=== PATIENT | female | born 1940 | race Caucasian/White ===

== ENCOUNTER 2017-06-22 13:08 | Inpatient (IN) | payer MEDICARE, MEDICAID ==
--- NOTE | 2017-06-22 13:29 | ED Physician Chart ---
ED Chief Complaint/HPI - Patient Information Date Seen:: 06/22/17 Time Seen:: 13:15 Chief Complaint:: Syncope History of Present Illness:: onset x one day of syncope, weakness, and dizainess; no report of trauma, LOC, H /As, ALOC, AMS, neck pain, C/P, SOB, Abd. Pain, A/N/V/D/C, fever, chills, or urinary s/s Allergies:: Allergies Allergy/AdvReac Type Severity Reaction Status Date / Time No Known Allergies Allergy Verified 06/22/17 13:24 Historian:: Patient Review:: Nurse's Note Reviewed ED Review of Systems - Review of Systems General/Constitutional: No fever, No chills, No weight loss, No weakness, No diaphoresis, No edema, No loss of appetite Skin: No skin lesions, No rash, No bruising Head: No headache, No light-headedness Eyes: No loss of vision, No pain, No diplopia ENT: No earache, No nasal drainage, No sore throat, No tinnitus Neck: No neck pain, No swelling, No thyromegaly, No stiffness, No mass noted Cardio Vascular: No chest pain, No palpitations, No PND, No orthopnea, No edema Pulmonary: No SOB, No cough, No sputum, No wheezing GI: No nausea, No vomiting, No diarrhea, No pain, No melena, No hematochezia, No constipation, No hematemesis G/U: No dysuria, No frequency, No hematuria, No nacturia Conference Concierge: No vaginal discharge, No abnormal vaginal bleed, No contraction Musculoskeletal: No bone or joint pain, No back pain, No muscle pain Endocrine: No polyuria, No polydipsia Psychiatric: Prior psych history, No depression, Anxiety, No suicidal ideation, No homicidal ideation, No auditory hallucination, No visual hallucination Hematopoietic: No bruising, No lymphadenopathy Allergic/Immuno: No urticaria, No angioedema Neurological: Syncope, No focal symptoms, No weakness, No paresthesia, No headache, No seizure, Dizziness, Confusion, Vertigo ED Past Medical History - Past Medical History Obtainable: Yes Past Medical History: HTN, Asthma/COPD, Arthritis, Dementia Family History: HTN Social History: Non Smoker, No Alcohol, No Drug Use, Surgical History: None Psychiatricy History: Dementia Medication: Reviewed ED Physical Exam - Physical Examination General/Constitutional: Awake, Well-developed, well-nourished, Alert, No distress, GCS 15, Non-toxic appearing, Ambulatory Head: Atraumatic Eyes: Lids, conjuctiva normal, PERRL, EOMI Skin: Nl inspection, No rash, No skin lesions, No ecchymosis, Well hydrated, No lymphadenopathy ENMT: External ears, nose nl, TM canals nl, Nasal exam nl, Lips, teeth, gums nl , Oropharynx nl, Tonsils nl Neck: Nontender, Full ROM w/o pain, No JVD, No nuchal rigidity, No bruit, No mass, No stridor Respiratory: Nl effort/Exclusion, Clear to Auscultation, No Wheeze/Rhonchi/Rales Cardio Vascular: RRR, No murmur, gallop, rubs, NL S1 S2, Carotid/Femoral/Distal pulses equal bilaterally GI: No tenderness/rebounding/guarding, No organomegaly, No hernia, Normal BS's, Nondistended, No mass/bruits, No McBurney tenderness : No CVA tenderness Extremities: No tenderness or effusion, Full ROM, normal strength in all extremities, No edema, Normal digits & nails Neuro/Psych: Alert/oriented, DTR's symmetric, Normal sensory exam, Normal motor strength, Judgement/insight normal, Mood normal, Normal gait, No focal deficits Misc: Normal back, No paraspinal tenderness ED Labs/Radiology/EKG Results - Lab Results Comments:: Na+: 130 - Radiology Results Comments:: NAD - EKG Interpretations EKG Time:: 13:31 Rate & Rhythm: 79; nsr Comments:: non-specific st-t changes ED Septic Shock - . Is Septic Shock (SBP<90, OR Lactate>4 mmol\L) present?: No ED Reassessment (Disposition) - Reassessment Reassessment Condition:: Improved - Diagnosis Diagnosis:: Dx: Hyponatremia; Syncope; TIA; Cardiac Arrythmias; Dizziness; Vertigo - Aftercare/Follow up Instructions Aftercare/Follow-Up Instructions:: Counseled pt regarding lab results/diagnosis & need follow up, Counseled pt & family regarding lab results/diagnosis & need follow up - Patient Disposition Discharge/Transfer:: Acute Care w/in this hosp Accepting Physician:: Dr. Zacarias Time Called:: 1500 Time Responded:: 15:00 Admitted to:: Telemetry Spoke to:: Dr. Adames Admitting Medical Physician:: Dr. Adames Condition at Disposition:: Stable, Improved
[2017-06-22 13:57] LABS: % BASOPHILS 0.4 % (0.0-2.0); % EOSINOPHILS 1.7 % (0.0-5.0); % MONOCYTES 6.9 % (2.0-10.0); EOSINOPHILE ABSOLUTE 0.1 Th/cmm (0.1-0.4); HEMATOCRIT 35.9 % (41.0-60); LYMPHOCYTE ABSOLUTE 1.9 Th/cmm (1.5-3.0); MEAN CELL VOLUME 85.5 fl (81-100); MEAN CORPUSCULAR HEMOGLOBIN 28.7 pg (27.0-31.0); MEAN CORPUSCULAR HGB CONC 33.6 pg (28.0-36.0); MEAN PLATELET VOLUME 6.9 fl; MONOCYTE ABSOLUTE 0.5 Th/cmm (0.3-1.0); NEUTROPHILE ABSOLUTE 4.7 Th/cmm (1.8-8.0); PLATELET COUNT 348 Th/cmm (150-400); RED BLOOD COUNT 4.19 Mil/cmm (3.80-5.20); WHITE BLOOD COUNT 7.2 Th/cmm (4.8-10.8)
[2017-06-22 13:58] LABS: INR 1.06 (0.5-1.4)
[2017-06-22 14:07] LABS: ALB/GLOB RATIO 1.7 (1.0-1.8); ALBUMIN 4.6 gm/dL (3.7-5.3); ALKALINE PHOSPHATASE 52 U/L (34-104); ANION GAP 13.6 (7.0-16.0); BILIRUBIN,TOTAL 0.4 mg/dL (0.3-1.0); BUN - UREA NITROGEN 13 mg/dL (7-25); CARBON DIOXIDE 27.4 mEq/L (21.0-31.0); CHLORIDE 93 mEq/L (98-107); CHOLESTEROL 112 mg/dL (<200); CREATININE - SERUM 0.8 mg/dL (0.6-1.2); CREATININE KINASE 49 U/L (30-223); GLUCOSE 109 mg/dL (70-105); HDL -HIGH DENSITY LIPOPROTEIN 51 mg/dL (23-92); SGOT 16 U/L (13-39); SGPT/ALT 12 U/L (7-52); SODIUM SERUM 130 mEq/L (136-145); TOTAL PROTEIN,SERUM 7.3 gm/dL (6.0-8.3); TRIGLYCERIDES 104 mg/dL (<150)
--- NOTE | 2017-06-22 14:14 | Diagnostic Imaging Report ---
CT scan of the brain without intravenous contrast HISTORY: Syncope Total DLP equals 649 CTDI equals 37.2 Axial sections were obtained from the base of the skull to the vertex. Exam compromised by artifact. There is a normal ventricular system size for age. There is prominence of cerebral sulci and subarachnoid cisterns reflecting atrophy. No acute parenchymal abnormalities. No intracerebral hemorrhage. No mass effect or shift of midline structures. No extra-axial masses or abnormal fluid collections. There is a degree of sclerotic change within the left mastoid air cells consistent with inflammatory sequelae. IMPRESSION: 1. Somewhat limited exam due to technical artifact 2. No definite acute intracerebral abnormalities 3. Mild cerebral atrophy 4. Sclerotic change within the left mastoid air cells consistent with inflammatory sequelae.
[2017-06-22] MEDS ORDERED: MICONAZOLE NITRATE 100 MG KIT VG SCH (18:30)
[2017-06-22] MEDS: INSULIN ASPART SLIDING SCALE 100 UNITS/ML UNIT SUBQ SCH ×2 (18:35→22:00)
[2017-06-22] MEDS ORDERED: Pneumococcal Vaccine 0.5 mL Vial IM ONE (19:16)
[2017-06-22] MEDS ORDERED: Clotrimazole 1% Vaginal Cream 45 gm Tube VG SCH (22:15)
[2017-06-22 22:43] VITALS: BP 145/67
--- NOTE | 2017-06-22 23:31 | Consultation ---
Consult Note - Consult Note Service Date: 06/22/17 Referring Physician: Beth Adames Consult Note: PHYSICIAN Consultation Note: Date of Admission: 06/22/17 Purpose of Consultation: vaginal irritations. Chief Complaint: Patient GERALD OSEGUERA was admitted to [facility] Telemetry with SYNCOPE,HYPONATREMIA. History of Present Illness: Pateint is 77 year old female admitted for vaginal irritation. Denies any fever, dysuria, hematuria., Past Medical History: Allergies Allergy/AdvReac Type Severity Reaction Status Date / Time No Known Allergies Allergy Verified 06/22/17 13:24 Vital Signs Temp 97.7 F 06/22/17 20:00 Pulse 86 06/22/17 20:00 Resp 19 06/22/17 20:00 BP 145/67 06/22/17 22:43 Pulse Ox 95 06/22/17 20:00 Laboratory Results - last 24 hr 06/22/17 17:54 POC Glucose 117 H Home Medication Medication Instructions Recorded Type Alendronate Sodium [Fosamax] 1 tab PO QWEEK 0730 06/22/17 History Amantadine HCl [Amantadine] 1 tab PO BID 06/22/17 History Arginine/Glutamine/Calcium Hmb 1 packet PO BID 06/22/17 History [Wale Packet] Aspirin [Adult Low Dose Aspirin EC] 1 tab PO DAILY 06/22/17 History Calcium Carbonate/Vitamin D3 1 tab PO DAILY 06/22/17 History [Calcium 500-Vit D3 200 Caplet] Carbidopa/Levodopa [Sinemet Cr 1 tab PO Q12H 06/22/17 History 50-200 Tablet] Carvedilol [Coreg] 1 tab PO BID 06/22/17 History Clonazepam [Klonopin] 1 mg PO HS 06/22/17 History Clotrimazole [Clotrimazole 1% Vg 1 appl TP Q12H 06/22/17 History Cream] Dextran 70/Hypromellose 1 drop EACH EYE QID 06/22/17 History [Artificial Tears] Diphenhydramine HCL [Benadryl] 50 mg PO Q6H 06/22/17 History Donepezil Hcl [Aricept] 1 tab PO HS 06/22/17 History Fenofibrate,Micronized 145 mg PO DAILY 06/22/17 History [Fenofibrate] Furosemide [Lasix] 40 mg PO DAILY 06/22/17 History Hydrocortisone [Anusol-Hc] 1 appful RC BID 06/22/17 History Lactulose 15 ml PO BID 06/22/17 History Losartan Potassium [Cozaar] 1 tab PO DAILY 06/22/17 History Memantine HCl [Namenda Xr] 1 tab PO DAILY 06/22/17 History Metformin HCl [Metformin HCl ER] 1 tab PO BID 06/22/17 History Methyl Salicylate/Menth/Camph 1 dose TP DAILY PRN 06/22/17 History [Muscle Rub Ultra Str Cream] Pregabalin [Lyrica] 1 tab PO Q12H 06/22/17 History Prochlorperazine [Compazine] 1 supp RC Q12H PRN 06/22/17 History Simethicone [Mylicon] 1 tab PO Q6H PRN 06/22/17 History Simvastatin [Zocor] 1 tab PO HS 06/22/17 History Spironolactone 1 tab PO DAILY 06/22/17 History Sucralfate [Carafate] 1 gm PO TID 06/22/17 History Trazodone HCl 1 tab PO HS 06/22/17 History Vortloxetine 15 mg PO DAILY 06/22/17 History Current Medications Generic Name Dose Route Start Last Admin Trade Name Freq PRN Reason Stop Dose Admin Acetaminophen 650 mg 06/22/17 18:33 06/22/17 19:47 Tylenol PO 08/21/17 18:44 650 mg Q4H PRN Administration Abdominal Pain Alendronate Sodium mg 06/22/17 22:15 Fosamax PO 08/21/17 22:14 QWEEK 0730 JULIAN Amantadine HCl 100 mg 06/23/17 09:00 Symmetrel PO 08/22/17 08:59 BID JULIAN Artificial Tears 1 drop 06/23/17 09:00 Artificial Tears Ophth Soln EACH EYE 08/22/17 08:59 QID JULIAN Aspirin 81 mg 06/23/17 09:00 Ecotrin PO 08/22/17 08:59 DAILY JULIAN Betamethasone/Clotrimazole 1 appl 06/23/17 09:00 Lotrisone Cream TP 06/25/17 09:00 BID JULIAN Calcium/Vitamin D 1 tab 06/23/17 09:00 Oscal W/Vitamin D PO 08/22/17 08:59 DAILY JULIAN Carbidopa/Levodopa ter 06/22/17 22:15 Sinemet Cr 50mg-200mg PO 08/21/17 22:14 Q12H [facility] Carvedilol 3.125 mg 06/23/17 09:00 Coreg PO 08/22/17 08:59 BID JULIAN Clonazepam 1 mg 06/23/17 21:00 Klonopin PO 08/22/17 20:59 HS [facility] Protocol Clotrimazole 1 appl 06/22/17 22:15 Clotrimazole 1% Vg Cream VG 08/21/17 22:14 Q12H JULIAN Diphenhydramine HCl mg 06/22/17 22:15 Benadryl PO 08/21/17 22:14 Q6H [facility] Donepezil HCl mg 06/23/17 21:00 Aricept PO 08/22/17 20:59 HS [facility] Furosemide 40 mg 06/23/17 09:00 Lasix PO 08/22/17 08:59 DAILY [facility] Hydrocortisone 25 mg 06/23/17 09:00 Anusol-Hc RC 08/22/17 08:59 BID [facility] Sodium Chloride 1,000 mls @ 50 mls/hr 06/22/17 22:19 Nacl 0.9% IV 08/21/17 22:18 .Q20H [facility] Insulin Aspart 1 units 06/22/17 16:52 06/22/17 18:35 Novolog Insulin Sliding Scale SUBQ 08/21/17 16:51 Not Given ACHS [facility] Protocol Lactulose 10 gm 06/23/17 09:00 Cephulac PO 08/22/17 08:59 BID [facility] Losartan Potassium mg 06/23/17 09:00 Cozaar PO 08/22/17 08:59 DAILY [facility] Miconazole Nitrate 100 mg 06/22/17 18:30 Monistat VG 08/21/17 18:29 2XW JULIAN Miscellaneous 1 packet 06/23/17 09:00 Arginine/Glutamine/Calcium Hmb [Wale Packet] PO 08/22/17 08:59 BID [facility] Miscellaneous 145 mg 06/23/17 09:00 Fenofibrate,Micronized [Fenofibrate] PO 08/22/17 08:59 DAILY [facility] Miscellaneous 1 tab 06/23/17 09:00 Memantine Hcl [Namenda Xr] PO 08/22/17 08:59 DAILY JULIAN Miscellaneous 1 tab 06/23/17 09:00 Metformin Hcl [Metformin Hcl Er] PO 08/22/17 08:59 BID JULIAN Miscellaneous 1 dose 06/22/17 22:08 Methyl Salicylate/Menth/Camph [Muscle Rub Ultra Str Cream] TP DAILY PRN Pain (Mild) Miscellaneous 1 tab 06/22/17 22:15 Pregabalin [Lyrica] PO 08/21/17 22:14 Q12H JULIAN Miscellaneous 1 tab 06/23/17 09:00 Spironolactone [Spironolactone] PO 08/22/17 08:59 DAILY JULIAN Miscellaneous 15 mg 06/23/17 09:00 Vortloxetine PO 08/22/17 08:59 DAILY JULIAN Nitrofurantoin Macrocrystals 100 mg 06/23/17 09:00 Macrobid PO 08/22/17 08:59 BID [facility] Protocol Nitrofurantoin Macrocrystals 100 mg 06/23/17 18:55 Macrobid PO 06/23/17 18:56 NOW ONE Protocol Prochlorperazine mg 06/22/17 22:08 Compazine RC 08/21/17 22:07 Q12H PRN Nausea/vomiting Protocol Simethicone mg 06/22/17 22:08 Mylicon PO 08/21/17 22:07 Q6H PRN Indigestion Simvastatin mg 06/23/17 21:00 Zocor PO 08/22/17 20:59 HS [facility] Protocol Sucralfate 1 gm 06/23/17 09:00 Carafate PO 08/22/17 08:59 TID [facility] Tramadol HCl 50 mg 06/22/17 18:34 Ultram PO 08/21/17 18:33 Q6HR PRN Abdominal Pain Trazodone HCl mg 06/23/17 21:00 Desyrel PO 08/22/17 20:59 HS [facility] Protocol Review of Systems: A 12 point ROS was reviewed with the pertinent positive and negatives noted in the HPI. Social History Smoking Status Never smoker Drug Use No Alcohol Use No Family Medical History Family Medical History Start: 06/22/17 16: 32 Freq: ONCE Status: Active Document 06/22/17 16:32 DUSTIN (Rec: 06/22/17 19:22 DUSTIN POLLARD-[id number] ) Family Medical History FATHER History Unknown Yes Ethnicity Hx Family Cancer No Hx Family Coronary Artery Disease No Hx Family Congestive Heart Failure No Hx Family Hypertension Yes Hx Family Stroke No Hx Family Diabetes Yes Hx Family Seizures No Hx Family Dementia No Hx Family AIDS No Hx Family HIV No Hx Family COPD No Hx Family Hepatitis No Hx Family Psychiatric Problems No Hx Family Tuberculosis No Mother History Unknown Yes Ethnicity Hx Family Cancer Yes: STOMACH Hx Family Coronary Artery Disease No Hx Family Congestive Heart Failure Yes Hx Family Hypertension Yes Hx Family Stroke No Hx Family Diabetes Yes Hx Family Seizures No Hx Family Dementia No Hx Family AIDS No Hx Family HIV No Hx Family COPD No Hx Family Hepatitis No Hx Family Psychiatric Problems No Hx Family Tuberculosis No Other Medical History HEART PROBLEM Physical Exam: General: Comfortable, WN WD. HEENT: Head: NC NT. Oral cavicty moist, pink tongue. Eyes: pallor present. no icterus. Neck: supple ,no jvd, Cardio: S1 and S2 RR no murmur Respiratory: CTAP Abdominal: soft nt nd BS oresent. Genital/Urinary: deferred Extremities: NCCE Neurological: Alert awake and communicates well./ Assessment: 1. Vaginitis. 2. Syncope. Dementia. 4. HTN. 5. parkinson's disease. Plan: Monistat. lotrisone. when Monistat vaginal applicator ordered. Signed, Diogenes Cruz M.D. [id number]
--- NOTE | 2017-06-23 04:18 | Consultation ---
DATE OF CONSULTATION: 06/22/2017 HISTORY OF PRESENT ILLNESS: This 77-year-old female was seen and examined in the courtesy of Dr. Adames. This lady was admitted here from skilled nursing with a history of syncope. Information obtained from the chart. Not much available from the patient. The patient does have a history of coronary artery disease, history of COPD, history of Parkinson's, history of hyperlipidemia, diabetes type 2, fibromyalgia, history of depression and anxiety. On reviewing the chart and the lab, CAT scan of the brain showed no definite intracerebral abnormalities. Mild cerebral atrophy. Echocardiogram was done which revealed ejection fraction of 60-65%, LVH, mitral annular calcification, right main probably right ventricular enlargement, right ventricular systolic pressure was 26.2, aortic wall area was 1.86. EKG has shown sinus rhythm, normal axis. PHYSICAL EXAMINATION: VITAL SIGNS: Heart rate was 78, blood pressure was 137/65, temperature 97.1, respirations 19, O2 saturation 94%. SKIN: Normal. HEAD: Normocephalic. EYES: Conjunctivae were pink. There is no icterus in the eyes. Pupils reacting to light. NECK: There was no increased jugular venous distention, no thyromegaly, no lymphadenopathy. Carotids equal both sides. CHEST: Bilaterally symmetrical, moved well with respiration. Respiratory movements equal both sides. Trachea is central. There is note to percussion. Breath sound few scattered rales. CARDIOVASCULAR SYSTEM: PMI not well localized and no positional thrill. No parasternal heave. S1 normal, S2 physiologic. There were no S3, no rub. ABDOMEN: Soft, no tenderness, no rigidity, no guarding and no organomegaly. Bowel sounds normal. There is no calf tenderness. Peripheral pulses diminished. IMPRESSION: Syncope, etiology to be determined, rule out any cardiac output limiting cardiac arrhythmias or heart blocks. History of coronary artery disease, history of chronic obstructive pulmonary disease, Parkinson disease, hyperlipidemia, diabetes type 2, fibromyalgia, depression, and anxiety. The patient is already on aspirin, Coreg, Lasix, fenofibrate, simvastatin. Echocardiogram already has been done. Repeat EKG, lipid profile, TSH. Also, suggest neurological evaluation by neurologist. Further recommendation will be made depending on the rest of tests available. Thank you. We will follow with you as needed. JOB# [id number]
[2017-06-23 05:57] LABS: % BASOPHILS 0.4 % (0.0-2.0); % EOSINOPHILS 1.7 % (0.0-5.0); % LYMPHOCYTES 26.7 % (20.0-50.0); % MONOCYTES 6.2 % (2.0-10.0); EOSINOPHILE ABSOLUTE 0.1 Th/cmm (0.1-0.4); HEMATOCRIT 34.1 % (41.0-60); HEMOGLOBIN 11.6 gm/dL (12-16); LYMPHOCYTE ABSOLUTE 1.6 Th/cmm (1.5-3.0); MEAN CELL VOLUME 84.6 fl (81-100); MEAN CORPUSCULAR HEMOGLOBIN 28.7 pg (27.0-31.0); MEAN CORPUSCULAR HGB CONC 33.9 pg (28.0-36.0); MEAN PLATELET VOLUME 6.9 fl; MONOCYTE ABSOLUTE 0.4 Th/cmm (0.3-1.0); NEUTROPHILE ABSOLUTE 3.9 Th/cmm (1.8-8.0); PLATELET COUNT 326 Th/cmm (150-400); RED BLOOD COUNT 4.03 Mil/cmm (3.80-5.20); RED CELL DISTRIBUTION WIDTH 12.4 % (11.5-20.0)
[2017-06-23 06:32] LABS: CHOLESTEROL 119 mg/dL (<200); HDL -HIGH DENSITY LIPOPROTEIN 49 mg/dL (23-92); TRIGLYCERIDES 92 mg/dL (<150)
[2017-06-23] MEDS: INSULIN ASPART SLIDING SCALE 100 UNITS/ML UNIT SUBQ SCH ×4 (07:10→20:35)
--- NOTE | 2017-06-23 07:49 | Diagnostic Imaging Report ---
CHEST X-RAY: AP view INDICATION: Pain, syncope COMPARISON: None FINDINGS: There is elevation of the left hemidiaphragm and slight increased left basal lung markings. There may be a trace left effusion. Mild chronic changes are noted. The heart is at the upper limits of normal in size. Atherosclerosis is noted. Degenerative changes of the spine are noted. IMPRESSION: Slight increase left basal lung markings which may be due to atelectasis or scarring. No focal consolidation identified. There may be a trace left effusion. Atherosclerotic vascular disease.
--- NOTE | 2017-06-23 07:58 | Diagnostic Imaging Report ---
Ultrasound abdomen HISTORY: Abdominal pain, provided history of cholecystectomy 35 years ago COMPARISON: Chest x-ray performed on 06/22/2017 Technique: Sonography of the abdomen was performed in multiple planes. FINDINGS: The exam is limited due to bowel gas and body habitus. The liver demonstrates increased echogenicity. The liver margins are not well-defined, however, no evidence of focal lesions. The liver measures 16.2 cm. The gallbladder is not visualized. The common bile duct measures 0.9 cm. There is a 0.5 cm hyperechoic focus within the common bile duct. Assessment of the pancreas is limited due to bowel gas. The right kidney measures 11.5 x 5.4 cm. The left kidney measures 11.2 x 6.5 cm. Lobulated bilateral renal parenchymal are noted without discrete focal lesions. The spleen measures 10.3 cm. The visualized portions of the abdominal aorta are within normal limits in size. IMPRESSION: Limited exam due to body habitus and bowel gas. Nonvisualization of the gallbladder compatible with provided history of cholecystectomy. Mildly prominent common bile duct. The common bile duct measures up to 0.88 cm. This may be secondary to patient's cholecystectomy procedure. There appear to be more dilatation of the distal common bile duct for which measurements are not provided. There is also a 0.5 cm hyperechoic focus which may be within the common bile duct. A small common bile duct stone cannot be excluded. If clinically, indicated MRCP may be obtained for further assessment. Increased echogenicity of the liver which may be due to underlying fatty infiltration.
[2017-06-23] MEDS ORDERED: MEMANTINE HCL PO SCH (09:00)
[2017-06-23] MEDS ORDERED: VORTIOXETINE PO SCH (09:00)
[2017-06-23] MEDS ORDERED: CALCIUM HMB PO SCH (09:00)
[2017-06-23] MEDS ORDERED: GLUTAMINE PO SCH (09:00)
[2017-06-23] MEDS ORDERED: ARGININE PO SCH (09:00)
[2017-06-23] MEDS: Calcium Carb/Vit D 500 mg/200 U Tab PO SCH (09:14)
[2017-06-23] MEDS: Lactulose 10 Gm/15 mL 30mL UDC PO SCH ×2 (09:15→18:16)
[2017-06-23] MEDS ORDERED: Menthol/Methyl Salicylate Cream TP PRN (10:00)
[2017-06-23] MEDS: Polyvinyl Alcohol Ophth Soln 15 mL Bottle EACH EYE SCH ×4 (10:18→20:35)
[2017-06-23] MEDS: Betamethasone/Clotrimazole Cream 15 gm Tube TP SCH ×2 (10:19→18:19)
[2017-06-23] MEDS: Fenofibrate, Micronized 134 mg Cap PO SCH (10:40)
[2017-06-23] MEDS: Carbidopa/Levodopa 50/200 mg 1 TER TER PO SCH ×2 (10:53→22:36)
[2017-06-23 11:12] LABS: CA 125 (OVARIAN) 7.4 U/mL (0.0-38.1)
[2017-06-23] MEDS: Hydrocodone/APAP 5mg/325mg Tab PO PRN ×2 (11:40→20:09)
[2017-06-23 12:16] LABS: HEP A AB IGM Negative (Negative); HEP B CORE IGM Negative (Negative); HEP B SURFACE AG QL Negative (Negative); HEP C ANTIBODY <0.1 s/co ratio (0.0-0.9)
--- NOTE | 2017-06-23 21:56 | History and Physical ---
History of Present Illness - HPI Chief Complaint: dizziness HPI: This is a 77 year old female who has a 1 day history of dizziness and weakness. Vital Signs: Last Vital Signs Temp 98.8 F 06/23/17 19:54 Pulse 74 06/23/17 19:54 Resp 18 06/23/17 19:54 BP 136/77 06/23/17 19:54 Pulse Ox 94 06/23/17 16:00 Past Medical History Other History: HTN, Asthma/COPD, Arthritis, Dementia Family Medical History - Family Member Mother History Unknown: Yes Ethnicity: Hx Family Cancer: Yes (STOMACH) Hx Family Coronary Artery Disease: No Hx Family Congestive Heart Failure: Yes Hx Family Hypertension: Yes Hx Family Stroke: No Hx Family Diabetes: Yes Hx Family Seizures: No Hx Family Dementia: No Hx Family AIDS: No Hx Family HIV: No Hx Family COPD: No Hx Family Hepatitis: No Hx Family Psychiatric Problems: No Hx Family Tuberculosis: No Other Medical History: HEART PROBLEM FATHER History Unknown: Yes Ethnicity: Hx Family Cancer: No Hx Family Coronary Artery Disease: No Hx Family Congestive Heart Failure: No Hx Family Hypertension: Yes Hx Family Stroke: No Hx Family Diabetes: Yes Hx Family Seizures: No Hx Family Dementia: No Hx Family AIDS: No Hx Family HIV: No Hx Family COPD: No Hx Family Hepatitis: No Hx Family Psychiatric Problems: No Hx Family Tuberculosis: No Social History Smoke: No Alcohol: None Drugs: None Lives: Alf - Medications Home Medications: Home Medication Medication Instructions Recorded Type Alendronate Sodium [Fosamax] 1 tab PO QWEEK 0730 06/22/17 History Amantadine HCl [Amantadine] 1 tab PO BID 06/22/17 History Arginine/Glutamine/Calcium Hmb 1 packet PO BID 06/22/17 History [Wale Packet] Aspirin [Adult Low Dose Aspirin EC] 1 tab PO DAILY 06/22/17 History Calcium Carbonate/Vitamin D3 1 tab PO DAILY 06/22/17 History [Calcium 500-Vit D3 200 Caplet] Carbidopa/Levodopa [Sinemet Cr 1 tab PO Q12H 06/22/17 History 50-200 Tablet] Carvedilol [Coreg] 1 tab PO BID 06/22/17 History Clonazepam [Klonopin] 1 mg PO HS 06/22/17 History Clotrimazole [Clotrimazole 1% Vg 1 appl TP Q12H 06/22/17 History Cream] Dextran 70/Hypromellose 1 drop EACH EYE QID 06/22/17 History [Artificial Tears] Diphenhydramine HCL [Benadryl] 50 mg PO Q6H 06/22/17 History Donepezil Hcl [Aricept] 1 tab PO HS 06/22/17 History Fenofibrate,Micronized 145 mg PO DAILY 06/22/17 History [Fenofibrate] Furosemide [Lasix] 40 mg PO DAILY 06/22/17 History Hydrocortisone [Anusol-Hc] 1 appful RC BID 06/22/17 History Lactulose 15 ml PO BID 06/22/17 History Losartan Potassium [Cozaar] 1 tab PO DAILY 06/22/17 History Memantine HCl [Namenda Xr] 1 tab PO DAILY 06/22/17 History Metformin HCl [Metformin HCl ER] 1 tab PO BID 06/22/17 History Methyl Salicylate/Menth/Camph 1 dose TP DAILY PRN 06/22/17 History [Muscle Rub Ultra Str Cream] Pregabalin [Lyrica] 1 tab PO Q12H 06/22/17 History Prochlorperazine [Compazine] 1 supp RC Q12H PRN 06/22/17 History Simethicone [Mylicon] 1 tab PO Q6H PRN 06/22/17 History Simvastatin [Zocor] 1 tab PO HS 06/22/17 History Spironolactone 1 tab PO DAILY 06/22/17 History Sucralfate [Carafate] 1 gm PO TID 06/22/17 History Trazodone HCl 1 tab PO HS 06/22/17 History Vortloxetine 15 mg PO DAILY 06/22/17 History - Allergies Allergies/Adverse Reactions: Allergies Allergy/AdvReac Type Severity Reaction Status Date / Time No Known Allergies Allergy Verified 06/22/17 13:24 Review of Systems - Review of Systems Constitutional: Report: Weakness Eyes: Report: No Significant Respiratory: Report: No Significant Cardiovascular: Report: No Significant Neurological: Report: Weakness Physical Exam - Physical Exam HEENT: Report: Ears Nose Throat within normal limits Neck: Report: Within normal limits Cardiovascular Systems: Report: +s1/s2 noted, Regular, Rate and Rhythm Respiratory: Report: Breath Sounds are within normal limits Abdomen: Report: Non-tender to palpation Back: Report: Inspection of back is within normal limits. Extremities: Report: Non-tender to palpation. Skin: Report: Color of skin is within normal limits Neuro/Psych: Report: Weakness or sensory loss noted. - Lab Results All Lab Results last 24 hours: Laboratory Results - last 24 hr 06/22/17 06/22/17 06/23/17 17:35 17:44 05:36 WBC 6.0 RBC 4.03 Hgb 11.6 L Hct 34.1 L MCV 84.6 MCH 28.7 MCHC Differential 33.9 RDW 12.4 Plt Count 326 MPV 6.9 Neutrophils % 65.0 Lymphocytes % 26.7 Monocytes % 6.2 Eosinophils % 1.7 Basophils % 0.4 POC Glucose Triglycerides Cholesterol LDL Cholesterol Direct HDL Cholesterol CA 19-9 Antigen 20 CA 125 Antigen 7.4 TSH Hepatitis A IgM Ab Negative Hep Bs Antigen Negative Hep B Core IgM Ab Negative Hepatitis C Antibody <0.1 06/23/17 06/23/17 06/23/17 05:36 05:36 12:06 WBC RBC Hgb Hct MCV MCH MCHC Differential RDW Plt Count MPV Neutrophils % Lymphocytes % Monocytes % Eosinophils % Basophils % POC Glucose 123 H Triglycerides 92 Cholesterol 119 LDL Cholesterol Direct 48 L HDL Cholesterol 49 CA 19-9 Antigen CA 125 Antigen TSH 1.20 Hepatitis A IgM Ab Hep Bs Antigen Hep B Core IgM Ab Hepatitis C Antibody 06/23/17 06/23/17 17:02 20:29 WBC RBC Hgb Hct MCV MCH MCHC Differential RDW Plt Count MPV Neutrophils % Lymphocytes % Monocytes % Eosinophils % Basophils % POC Glucose 112 H 112 H Triglycerides Cholesterol LDL Cholesterol Direct HDL Cholesterol CA 19-9 Antigen CA 125 Antigen TSH Hepatitis A IgM Ab Hep Bs Antigen Hep B Core IgM Ab Hepatitis C Antibody - Assessment Assessment: syncope vaginitis HTN Asthma/COPD Arthritis Dementia - Plan Plan: id/cardiology consultation carotid u/s am labs continue current orders
--- NOTE | 2017-06-23 21:57 | Consultation ---
DATE OF CONSULTATION: 06/23/2017 IDENTIFYING INFORMATION: The patient is a 77-year-old female. REASON FOR CONSULTATION: The patient has a history of depression. Apparently, a few weeks ago, she was telling her family that she wanted to hang herself. HISTORY OF PRESENT ILLNESS: The patient was admitted because of syncope attack and hyponatremia. The patient herself was a reasonable historian. Her sister happened to be there as patient speaks [place]. She was able to translate. Apparently, the patient has been diagnosed with dementia and has been on Aricept and Namenda. The patient apparently has not been sleeping or eating well unless she get her medication that sister tell me she was best all her life. Currently, she is depressed. She is not sleeping or eating well, but she also had multiple medical issues. The patient denies any current intent to harm herself or anybody. She denies any auditory or visual hallucination. The patient denies any intent to harm anybody. Denies feeling paranoid. Denies substance abuse. PAST PSYCHIATRIC HISTORY: The patient has been hospitalized at least 3 times as per her sister, she has many attempts to harm herself by overdose and other methods that she was cannot remember. She reports that she has been on medication, but she is not sure of the medication. MEDICAL HISTORY: Apparently, the patient has multiple medical issues including syncope, COPD, history of Parkinson's disease, hyperlipidemia, diabetes type 2, fibromyalgia. She did have a CT scan that showed no definite intracerebral abnormalities. She had mild cerebral atrophy. She has an Echogram that has revealed ejection fraction of 65%, left ventricular hypertrophy, mitral annular calcification, right main probably right ventricular enlargement. So they could not determine the reason for her syncope attack and they cannot rule out cardiac output limiting cardiac arrhythmia and heart block. Her sister does not believe she has Parkinson's because she said she does not shake as much as the sister shakes. MEDICATIONS: The patient has been on Aricept and Namenda. However, her sister believes she is okay. The patient has been on amantadine for Parkinson's. She has been on Aricept 10 mg at bedtime, Namenda 10 mg twice a day, fenofibrate, Lasix and insulin, lactulose, losartan, nitrofurantoin for [place] infection, and Lyrica, simvastatin, spironolactone, tramadol and trazodone and she is on Trintellix 50 mg a day; however, that is not ____. FAMILY AND SOCIAL HISTORY: The patient has been ____ for 3 years. She was for 50 years. She reports that she has 3 boys, but apparently they have not been coming to visit the patient. No family history of psychotic disorder, suicide or substance abuse. The patient went to [employer], but not graduate. 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 No family history of psychotic disorder. No history of abuse. MENTAL STATUS EXAMINATION: The patient was appropriately dressed in hospital gown. She was alert. She was smiling. She admits to feeling depressed with poor sleep, poor appetite, poor energy and motivation. She denies any auditory or visual hallucination or paranoia. She denies any intent to harm herself or anybody poor sleep, poor appetite, poor energy and motivation was able to tell me the date and tell me the president of [employer] [facility]. Her long-term is good for age. Recent memory is good for events after coming here. Her insight and judgment seems to be fair. 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 MEDICAL DIAGNOSES: As per the medical doctor. PLAN: I would add Remeron to this patient. The patient may need to transfer to [facility] if she is still depressed. Thank you very much for allowing me to participate in the care of this most interesting lady. JOB# [id number]
--- NOTE | 2017-06-23 23:52 | Infectious Disease Prog Note ---
Infectious Disease Subjective - Review of Systems Service Date: 06/23/17 Subjective: No new change, no fever. Infectious Disease Objective - Results Result Diagrams: 06/24/17 05:10 06/26/17 05:22 Recent Labs: Laboratory Last Values WBC 6.0 Th/cmm (4.8-10.8) 06/23/17 05:36 RBC 4.03 Mil/cmm (3.80-5.20) 06/23/17 05:36 Hgb 11.6 gm/dL (12-16) L 06/23/17 05:36 Hct 34.1 % (41.0-60) L 06/23/17 05:36 MCV 84.6 fl (81-100) 06/23/17 05:36 MCH 28.7 pg (27.0-31.0) 06/23/17 05:36 MCHC Differential 33.9 pg (28.0-36.0) 06/23/17 05:36 RDW 12.4 % (11.5-20.0) 06/23/17 05:36 Plt Count 326 Th/cmm (150-400) 06/23/17 05:36 MPV 6.9 fl 06/23/17 05:36 Neutrophils % 65.0 % (40.0-80.0) 06/23/17 05:36 Lymphocytes % 26.7 % (20.0-50.0) 06/23/17 05:36 Monocytes % 6.2 % (2.0-10.0) 06/23/17 05:36 Eosinophils % 1.7 % (0.0-5.0) 06/23/17 05:36 Basophils % 0.4 % (0.0-2.0) 06/23/17 05:36 PT 11.0 SECONDS (9.5-11.5) 06/22/17 13:40 INR 1.06 (0.5-1.4) 06/22/17 13:40 Sodium 130 mEq/L (136-145) L 06/22/17 13:40 Potassium 4.0 mEq/L (3.5-5.1) 06/22/17 13:40 Chloride 93 mEq/L (98-107) L 06/22/17 13:40 Carbon Dioxide 27.4 mEq/L (21.0-31.0) 06/22/17 13:40 Anion Gap 13.6 (7.0-16.0) 06/22/17 13:40 BUN 13 mg/dL (7-25) 06/22/17 13:40 Creatinine 0.8 mg/dL (0.6-1.2) 06/22/17 13:40 Est GFR ( Amer) TNP 06/22/17 13:40 Est GFR (Non-Af Amer) TNP 06/22/17 13:40 BUN/Creatinine Ratio 16.3 06/22/17 13:40 Glucose 109 mg/dL (70-105) H 06/22/17 13:40 POC Glucose 112 MG/DL (70 - 105) H 06/23/17 20:29 Calcium 10.0 mg/dL (8.6-10.3) 06/22/17 13:40 Total Bilirubin 0.4 mg/dL (0.3-1.0) 06/22/17 13:40 AST 16 U/L (13-39) 06/22/17 13:40 ALT 12 U/L (7-52) 06/22/17 13:40 Alkaline Phosphatase 52 U/L (34-104) 06/22/17 13:40 Creatine Kinase 49 U/L (30-223) 06/22/17 13:40 Troponin I < 0.01 ng/mL (0.01-0.05) L 06/22/17 13:40 B-Natriuretic Peptide 18.5 pg/mL (5.0-100.0) 06/22/17 13:40 Total Protein 7.3 gm/dL (6.0-8.3) 06/22/17 13:40 Albumin 4.6 gm/dL (3.7-5.3) 06/22/17 13:40 Globulin 2.7 gm/dL 06/22/17 13:40 Albumin/Globulin Ratio 1.7 (1.0-1.8) 06/22/17 13:40 Triglycerides 92 mg/dL (<150) 06/23/17 05:36 Cholesterol 119 mg/dL (<200) 06/23/17 05:36 LDL Cholesterol Direct 48 mg/dL (75-193) L 06/23/17 05:36 HDL Cholesterol 49 mg/dL (23-92) 06/23/17 05:36 CA 19-9 Antigen 20 U/mL (0-35) 06/22/17 17:35 CA 125 Antigen 7.4 U/mL (0.0-38.1) 06/22/17 17:35 TSH 1.20 uIU/ml (0.34-5.60) 06/23/17 05:36 Hepatitis A IgM Ab Negative (Negative) 06/22/17 17:44 Hep Bs Antigen Negative (Negative) 06/22/17 17:44 Hep B Core IgM Ab Negative (Negative) 06/22/17 17:44 Hepatitis C Antibody <0.1 s/co ratio (0.0-0.9) 06/22/17 17:44 - Physical Exam Vitals and I&O: Vital Signs Temp 98.8 F 06/23/17 19:54 Pulse 74 06/23/17 19:54 Resp 18 06/23/17 19:54 BP 136/77 06/23/17 19:54 Pulse Ox 94 06/23/17 16:00 Intake & Output 06/23/17 06/23/17 06/24/17 06:59 18:59 06:59 Intake Total 300 Output Total 1 Balance 299 Weight (lbs) 80.739 kg 80.739 kg Intake: Oral 300 Output: Stool 1 Other: # Voids 3 Weight Source Bedscale Bedscale Active Medications: Current Medications Acetaminophen (Tylenol) 650 mg PO Q4H PRN PRN Reason: Abdominal Pain Stop: 08/21/17 18:44 Last Admin: 06/23/17 16:29 Dose: 650 mg Acetaminophen/Hydrocodone Bitart ([place] 5mg/325mg) 1 tab PO Q6H PRN PRN Reason: Severe Pain Stop: 08/22/17 10:57 Last Admin: 06/23/17 20:09 Dose: 1 tab Alendronate Sodium (Fosamax) mg PO QWEEK 0730 [facility] Stop: 08/21/17 22:14 Amantadine HCl (Symmetrel) 100 mg PO BID [facility]UL[facility] Stop: 08/22/17 08:59 Last Admin: 06/23/17 18:15 Dose: 100 mg Artificial Tears (Artificial Tears Ophth Soln) 1 drop EACH EYE QID JULIAN Stop: 08/22/17 08:59 Last Admin: 06/23/17 20:35 Dose: 1 drop Aspirin (Ecotrin) 81 mg PO DAILY JULIAN Stop: 08/22/17 08:59 Last Admin: 06/23/17 09:13 Dose: 81 mg Betamethasone/Clotrimazole (Lotrisone Cream) 1 appl TP BID JULIAN Stop: 06/25/17 09:00 Last Admin: 06/23/17 18:19 Dose: 1 appl Calcium/Vitamin D (Oscal W/Vitamin D) 1 tab PO DAILY JULIAN Stop: 08/22/17 08:59 Last Admin: 06/23/17 09:14 Dose: 1 tab Camphor/Menthol (Bengay Greaseless 10%-15%) 1 appl TP DAILY PRN PRN Reason: Pain (Mild) Stop: 08/22/17 09:59 Last Admin: 06/23/17 20:42 Dose: 1 appl Carbidopa/Levodopa (Sinemet Cr 50mg-200mg) 1 ter PO Q12H [facility]ULIAN Stop: 08/22/17 09:59 Last Admin: 06/23/17 22:36 Dose: Not Given Carvedilol (Coreg) 3.125 mg PO BID JULIAN Stop: 08/22/17 08:59 Last Admin: 06/23/17 18:17 Dose: 3.125 mg Clonazepam (Klonopin) 1 mg PO HS JULIAN PRN Reason: Protocol Stop: 08/22/17 20:59 Last Admin: 06/23/17 20:34 Dose: 1 mg Clotrimazole (Clotrimazole 1% Vg Cream) 1 appl VG Q12H [facility]ULIAN Stop: 08/21/17 22:14 Last Admin: 06/23/17 22:36 Dose: 1 appl Donepezil HCl (Aricept) 10 mg PO HS JULIAN Stop: 08/22/17 20:59 Last Admin: 06/23/17 20:35 Dose: 10 mg Fenofibrate (Tricor) 134 mg PO DAILY JULIAN Stop: 08/22/17 09:59 Last Admin: 06/23/17 10:40 Dose: 134 mg Furosemide (Lasix) 40 mg PO DAILY JULIAN Stop: 08/22/17 08:59 Last Admin: 06/23/17 09:16 Dose: Not Given Hydrocortisone (Anusol-Hc) 25 mg RC BID JULIAN Stop: 08/22/17 08:59 Last Admin: 06/23/17 18:18 Dose: 25 mg Sodium Chloride (Nacl 0.9%) 1,000 mls @ 50 mls/hr IV .Q20H [facility] Stop: 08/21/17 22:18 Insulin Aspart (Novolog Insulin Sliding Scale) 1 units SUBQ ACHS JULIAN PRN Reason: Protocol Stop: 08/21/17 16:51 Last Admin: 06/23/17 20:35 Dose: Not Given Lactulose (Cephulac) 10 gm PO BID [facility] Stop: 08/22/17 08:59 Last Admin: 06/23/17 18:16 Dose: 10 gm Losartan Potassium (Cozaar) 50 mg PO DAILY [facility] Stop: 08/22/17 09:59 Last Admin: 06/23/17 10:42 Dose: 50 mg Memantine (Namenda) 10 mg PO BID [facility] Stop: 08/22/17 16:59 Last Admin: 06/23/17 18:17 Dose: 10 mg Metformin HCl (Glucophage) 1,000 mg PO BID [facility] Stop: 08/22/17 10:59 Last Admin: 06/23/17 18:17 Dose: 1,000 mg Miconazole Nitrate (Monistat) 100 mg VG 2XW [facility] Stop: 08/21/17 18:29 Last Admin: 06/23/17 17:58 Dose: 100 mg Mirtazapine (Remeron) 7.5 mg PO HS [facility] PRN Reason: Protocol Stop: 08/22/17 20:59 Last Admin: 06/23/17 20:34 Dose: 7.5 mg Miscellaneous (Vortloxetine) 15 mg PO DAILY [facility] Stop: 08/22/17 08:59 Nitrofurantoin Macrocrystals (Macrobid) 100 mg PO BID [facility] PRN Reason: Protocol Stop: 08/22/17 08:59 Last Admin: 06/23/17 18:26 Dose: 100 mg Pregabalin (Lyrica) 150 mg PO Q12H [facility] Stop: 08/22/17 09:59 Last Admin: 06/23/17 22:35 Dose: 150 mg Prochlorperazine (Compazine) 25 mg RC Q12H PRN; Protocol PRN Reason: Nausea/vomiting Stop: 08/21/17 22:07 Simethicone (Mylicon) 80 mg PO Q6H PRN PRN Reason: Indigestion Stop: 08/21/17 22:07 Last Admin: 06/23/17 18:18 Dose: 80 mg Simvastatin (Zocor) 40 mg PO HS [facility] PRN Reason: Protocol Stop: 08/22/17 20:59 Last Admin: 06/23/17 20:33 Dose: 40 mg Spironolactone (Aldactone) 50 mg PO DAILY [facility] Stop: 08/22/17 09:59 Last Admin: 06/23/17 10:44 Dose: 50 mg Sucralfate (Carafate) 1 gm PO TID [facility] Stop: 08/22/17 08:59 Last Admin: 06/23/17 20:33 Dose: 1 gm Tramadol HCl (Ultram) 50 mg PO Q6HR PRN PRN Reason: Abdominal Pain Stop: 08/21/17 18:33 Last Admin: 06/23/17 07:56 Dose: 50 mg Trazodone HCl (Desyrel) 50 mg PO HS [facility] PRN Reason: Protocol Stop: 08/22/17 20:59 Last Admin: 06/23/17 20:34 Dose: 50 mg General: no acute distress, well developed, well nourished HEENT: atraumatic, normocephalic, PERRLA, EOMI Neck: supple, no thyromegaly Cardiovascular: S1S2, regular Lungs: clear to auscultation bilaterally, clear to percussion Abdomen: soft, bowel sounds, no tender, no distended Extremities: no cyanosis, no clubbing, no edema Neurological: awake, alert, oriented, CN 2-12 intact Skin: intact Infectious Disease Assmt/Plan - Assessment Assessment: 1. Vaginitis. 2. Syncope. 3. Dementia. 4. HTN. 5. parkinson's disease. - Plan Plan: cpm.
[2017-06-24 05:27] LABS: % BASOPHILS 0.8 % (0.0-2.0); % EOSINOPHILS 2.5 % (0.0-5.0); % LYMPHOCYTES 40.9 % (20.0-50.0); % MONOCYTES 7.8 % (2.0-10.0); BASOPHILE ABSOLUTE 0.1 Th/cumm (0-0.2); EOSINOPHILE ABSOLUTE 0.2 Th/cmm (0.1-0.4); HEMATOCRIT 32.6 % (41.0-60); HEMOGLOBIN 10.9 gm/dL (12-16); LYMPHOCYTE ABSOLUTE 2.7 Th/cmm (1.5-3.0); MEAN CELL VOLUME 85.5 fl (81-100); MEAN CORPUSCULAR HEMOGLOBIN 28.7 pg (27.0-31.0); MEAN CORPUSCULAR HGB CONC 33.5 pg (28.0-36.0); MEAN PLATELET VOLUME 6.7 fl; MONOCYTE ABSOLUTE 0.5 Th/cmm (0.3-1.0); PLATELET COUNT 310 Th/cmm (150-400); RED BLOOD COUNT 3.82 Mil/cmm (3.80-5.20); RED CELL DISTRIBUTION WIDTH 12.8 % (11.5-20.0); WHITE BLOOD COUNT 6.5 Th/cmm (4.8-10.8)
[2017-06-24 05:39] LABS: ANION GAP 10.8 (7.0-16.0); BUN - UREA NITROGEN 10 mg/dL (7-25); CALCIUM SERUM 9.5 mg/dL (8.6-10.3); CHLORIDE 102 mEq/L (98-107); CREATININE - SERUM 0.5 mg/dL (0.6-1.2); GLUCOSE 128 mg/dL (70-105); POTASSIUM SERUM 3.8 mEq/L (3.5-5.1); SODIUM SERUM 134 mEq/L (136-145)
[2017-06-24] MEDS: Sodium Chloride 0.9% 1,000 ML IV SCH (05:54)
[2017-06-24] MEDS: INSULIN ASPART SLIDING SCALE 100 UNITS/ML UNIT SUBQ SCH ×4 (08:01→21:36)
[2017-06-24] MEDS: Betamethasone/Clotrimazole Cream 15 gm Tube TP SCH (10:13)
[2017-06-24] MEDS: Calcium Carb/Vit D 500 mg/200 U Tab PO SCH (10:13)
[2017-06-24] MEDS: Fenofibrate, Micronized 134 mg Cap PO SCH (10:14)
[2017-06-24] MEDS: Lactulose 10 Gm/15 mL 30mL UDC PO SCH ×2 (10:15→17:36)
[2017-06-24] MEDS: Polyvinyl Alcohol Ophth Soln 15 mL Bottle EACH EYE SCH ×4 (10:17→20:57)
[2017-06-24] MEDS: Carbidopa/Levodopa 50/200 mg 1 TER TER PO SCH ×3 (11:07→22:26)
[2017-06-24] MEDS: Hydrocodone/APAP 5mg/325mg Tab PO PRN ×2 (11:11→22:22)
--- NOTE | 2017-06-24 13:02 | Diagnostic Imaging Report ---
Carotid ultrasound HISTORY: Syncope COMPARISON: None Technique: Longitudinal and transverse sonographic sector images of the carotid arteries were obtained with doppler analysis. FINDINGS: Exam of the right side demonstrates intimal thickening and mild atherosclerotic vascular disease. There is increased velocity of the right common carotid artery at 200 cm/second. Exam of the left side demonstrates intimal thickening and mild atherosclerotic vascular disease. No evidence of elevated velocities. The velocity ratios are within normal limits. IMPRESSION: Mild bilateral atherosclerotic vascular disease. There is increased velocity of the right common carotid artery which is probably related to technical factors. Otherwise, No hemodynamically significant stenosis identified.
--- NOTE | 2017-06-24 15:58 | Infectious Disease Prog Note ---
Infectious Disease Subjective - Review of Systems Service Date: 06/24/17 Subjective: no change. Infectious Disease Objective - Results Result Diagrams: 06/24/17 05:10 06/24/17 05:10 Recent Labs: Laboratory Last Values WBC 6.5 Th/cmm (4.8-10.8) 06/24/17 05:10 RBC 3.82 Mil/cmm (3.80-5.20) 06/24/17 05:10 Hgb 10.9 gm/dL (12-16) L 06/24/17 05:10 Hct 32.6 % (41.0-60) L 06/24/17 05:10 MCV 85.5 fl (81-100) 06/24/17 05:10 MCH 28.7 pg (27.0-31.0) 06/24/17 05:10 MCHC Differential 33.5 pg (28.0-36.0) 06/24/17 05:10 RDW 12.8 % (11.5-20.0) 06/24/17 05:10 Plt Count 310 Th/cmm (150-400) 06/24/17 05:10 MPV 6.7 fl 06/24/17 05:10 Neutrophils % 48.0 % (40.0-80.0) 06/24/17 05:10 Lymphocytes % 40.9 % (20.0-50.0) 06/24/17 05:10 Monocytes % 7.8 % (2.0-10.0) 06/24/17 05:10 Eosinophils % 2.5 % (0.0-5.0) 06/24/17 05:10 Basophils % 0.8 % (0.0-2.0) 06/24/17 05:10 PT 11.0 SECONDS (9.5-11.5) 06/22/17 13:40 INR 1.06 (0.5-1.4) 06/22/17 13:40 Sodium 134 mEq/L (136-145) L 06/24/17 05:10 Potassium 3.8 mEq/L (3.5-5.1) 06/24/17 05:10 Chloride 102 mEq/L (98-107) 06/24/17 05:10 Carbon Dioxide 25.0 mEq/L (21.0-31.0) 06/24/17 05:10 Anion Gap 10.8 (7.0-16.0) 06/24/17 05:10 BUN 10 mg/dL (7-25) 06/24/17 05:10 Creatinine 0.5 mg/dL (0.6-1.2) L 06/24/17 05:10 Est GFR ( Amer) TNP 06/24/17 05:10 Est GFR (Non-Af Amer) TNP 06/24/17 05:10 BUN/Creatinine Ratio 20.0 06/24/17 05:10 Glucose 128 mg/dL (70-105) H 06/24/17 05:10 POC Glucose 124 MG/DL (70 - 105) H 06/24/17 12:27 Calcium 9.5 mg/dL (8.6-10.3) 06/24/17 05:10 Total Bilirubin 0.4 mg/dL (0.3-1.0) 06/22/17 13:40 AST 16 U/L (13-39) 06/22/17 13:40 ALT 12 U/L (7-52) 06/22/17 13:40 Alkaline Phosphatase 52 U/L (34-104) 06/22/17 13:40 Creatine Kinase 49 U/L (30-223) 06/22/17 13:40 Troponin I < 0.01 ng/mL (0.01-0.05) L 06/22/17 13:40 B-Natriuretic Peptide 18.5 pg/mL (5.0-100.0) 06/22/17 13:40 Total Protein 7.3 gm/dL (6.0-8.3) 06/22/17 13:40 Albumin 4.6 gm/dL (3.7-5.3) 06/22/17 13:40 Globulin 2.7 gm/dL 06/22/17 13:40 Albumin/Globulin Ratio 1.7 (1.0-1.8) 06/22/17 13:40 Triglycerides 92 mg/dL (<150) 06/23/17 05:36 Cholesterol 119 mg/dL (<200) 06/23/17 05:36 LDL Cholesterol Direct 48 mg/dL (75-193) L 06/23/17 05:36 HDL Cholesterol 49 mg/dL (23-92) 06/23/17 05:36 CA 19-9 Antigen 20 U/mL (0-35) 06/22/17 17:35 CA 125 Antigen 7.4 U/mL (0.0-38.1) 06/22/17 17:35 TSH 1.20 uIU/ml (0.34-5.60) 06/23/17 05:36 Hepatitis A IgM Ab Negative (Negative) 06/22/17 17:44 Hep Bs Antigen Negative (Negative) 06/22/17 17:44 Hep Bs Ag Confirmation Cancelled 06/22/17 17:35 Hep B Core IgM Ab Negative (Negative) 06/22/17 17:44 Hepatitis C Antibody <0.1 s/co ratio (0.0-0.9) 06/22/17 17:44 - Physical Exam Vitals and I&O: Vital Signs Temp 97.4 F 06/24/17 15:55 Pulse 76 06/24/17 15:55 Resp 19 06/24/17 15:55 BP 122/71 06/24/17 15:55 Pulse Ox 98 06/24/17 15:55 Intake & Output 06/23/17 06/24/17 06/24/17 18:59 06:59 18:59 Intake Total 200 Balance 200 Weight (lbs) 80.739 kg 81.647 kg Intake: Oral 200 Other: # Voids 3 # Bowel Movements 0 Weight Source Bedscale Bedscale Active Medications: Current Medications Acetaminophen (Tylenol) 650 mg PO Q4H PRN PRN Reason: Abdominal Pain Stop: 08/21/17 18:44 Last Admin: 06/23/17 16:29 Dose: 650 mg Acetaminophen/Hydrocodone Bitart ([place] 5mg/325mg) 1 tab PO Q6H PRN PRN Reason: Severe Pain Stop: 08/22/17 10:57 Last Admin: 06/24/17 11:11 Dose: 1 tab Amantadine HCl (Symmetrel) 100 mg PO BID [facility] Stop: 08/22/17 08:59 Last Admin: 06/24/17 10:11 Dose: 100 mg Artificial Tears (Artificial Tears Ophth Soln) 1 drop EACH EYE QID [facility] Stop: 08/22/17 08:59 Last Admin: 06/24/17 14:31 Dose: 1 drop Aspirin (Ecotrin) 81 mg PO DAILY [facility] Stop: 08/22/17 08:59 Last Admin: 06/24/17 10:13 Dose: 81 mg Calcium/Vitamin D (Oscal W/Vitamin D) 1 tab PO DAILY [facility] Stop: 08/22/17 08:59 Last Admin: 06/24/17 10:13 Dose: 1 tab Camphor/Menthol (Bengay Greaseless 10%-15%) 1 appl TP DAILY PRN PRN Reason: Pain (Mild) Stop: 08/22/17 09:59 Last Admin: 06/23/17 20:42 Dose: 1 appl Carbidopa/Levodopa (Sinemet Cr 50mg-200mg) 1 ter PO Q12H [facility] Stop: 08/22/17 09:59 Last Admin: 06/24/17 11:07 Dose: Not Given Carvedilol (Coreg) 3.125 mg PO BID [facility] Stop: 08/22/17 08:59 Last Admin: 06/24/17 10:13 Dose: 3.125 mg Clonazepam (Klonopin) 1 mg PO HS [facility] PRN Reason: Protocol Stop: 08/22/17 20:59 Last Admin: 06/23/17 20:34 Dose: 1 mg Donepezil HCl (Aricept) 10 mg PO HS [facility] Stop: 08/22/17 20:59 Last Admin: 06/23/17 20:35 Dose: 10 mg Fenofibrate (Tricor) 134 mg PO DAILY [facility] Stop: 08/22/17 09:59 Last Admin: 06/24/17 10:14 Dose: 134 mg Furosemide (Lasix) 40 mg PO DAILY [facility] Stop: 08/22/17 08:59 Last Admin: 06/24/17 10:14 Dose: 40 mg Hydrocortisone (Anusol-Hc) 25 mg RC BID [facility] Stop: 08/22/17 08:59 Last Admin: 06/24/17 10:14 Dose: 25 mg Sodium Chloride (Nacl 0.9%) 1,000 mls @ 50 mls/hr IV .Q20H [facility] Stop: 08/21/17 22:18 Last Admin: 06/24/17 05:54 Dose: 50 mls/hr Insulin Aspart (Novolog Insulin Sliding Scale) 0 units SUBQ ACHS [facility] PRN Reason: Protocol Stop: 08/23/17 11:29 Last Admin: 06/24/17 12:34 Dose: Not Given Lactulose (Cephulac) 10 gm PO BID [facility] Stop: 08/22/17 08:59 Last Admin: 06/24/17 10:15 Dose: 10 gm Losartan Potassium (Cozaar) 50 mg PO DAILY [facility] Stop: 08/22/17 09:59 Last Admin: 06/24/17 10:15 Dose: Not Given Memantine (Namenda) 10 mg PO BID [facility] Stop: 08/22/17 16:59 Last Admin: 06/24/17 10:18 Dose: 10 mg Metformin HCl (Glucophage) 1,000 mg PO BID [facility] Stop: 08/22/17 10:59 Last Admin: 06/24/17 10:17 Dose: 1,000 mg Miconazole Nitrate (Miconazole 2% Cream) 1 appl VG HS [facility] Stop: 06/30/17 21:01 Mirtazapine (Remeron) 7.5 mg PO [facility] PRN Reason: Protocol Stop: 08/22/17 20:59 Last Admin: 06/23/17 20:34 Dose: 7.5 mg Miscellaneous (Vortloxetine) 15 mg PO DAILY [facility] Stop: 08/22/17 08:59 Mupirocin (Bactroban Oint) 1 appl NS BID [facility] Stop: 06/28/17 17:01 Last Admin: 06/24/17 10:17 Dose: 1 appl Nitrofurantoin Macrocrystals (Macrobid) 100 mg PO BID [facility] PRN Reason: Protocol Stop: 08/22/17 08:59 Last Admin: 06/24/17 10:17 Dose: 100 mg Pregabalin (Lyrica) 150 mg PO Q12H [facility] Stop: 08/22/17 09:59 Last Admin: 06/24/17 10:18 Dose: 150 mg Prochlorperazine (Compazine) 25 mg RC Q12H PRN; Protocol PRN Reason: Nausea/vomiting Stop: 08/21/17 22:07 Simethicone (Mylicon) 80 mg PO Q6H PRN PRN Reason: Indigestion Stop: 08/21/17 22:07 Last Admin: 06/23/17 18:18 Dose: 80 mg Simvastatin (Zocor) 40 mg PO [facility] PRN Reason: Protocol Stop: 08/22/17 20:59 Last Admin: 06/23/17 20:33 Dose: 40 mg Spironolactone (Aldactone) 50 mg PO DAILY [facility] Stop: 08/22/17 09:59 Last Admin: 06/24/17 10:16 Dose: Not Given Sucralfate (Carafate) 1 gm PO TID [facility] Stop: 08/22/17 08:59 Last Admin: 06/24/17 15:32 Dose: 1 gm Tramadol HCl (Ultram) 50 mg PO Q6HR PRN PRN Reason: Abdominal Pain Stop: 08/21/17 18:33 Last Admin: 06/24/17 15:38 Dose: 50 mg Trazodone HCl (Desyrel) 50 mg PO HS [facility] PRN Reason: Protocol Stop: 08/22/17 20:59 Last Admin: 06/23/17 20:34 Dose: 50 mg General: no acute distress, well developed, well nourished HEENT: atraumatic, normocephalic, PERRLA, EOMI, moist mucous membrane Neck: supple, no thyromegaly Cardiovascular: S1S2, regular Lungs: clear to auscultation bilaterally, clear to percussion, crackles Abdomen: soft, no tender, no distended, no mass, no hepatomegaly, no splenomegaly Extremities: cyanosis, clubbing, edema Neurological: awake, alert Skin: intact Infectious Disease Assmt/Plan - Assessment Assessment: 1. vaginitis. ? non infectious versus arlene. - Plan Plan: Will give monistat and estrogen cream.
--- NOTE | 2017-06-24 21:23 | Progress Notes ---
DATE: 06/24/[address] Avitia. Case was discussed with staff of the patient, reviewed records. I was able to talk to her through a management architect, her sister was not there. The patient reports she slept better on the Remeron. She is alert, oriented to place, person, and time, but not necessarily to situation. She denies that she will harm herself or anybody. She denies any auditory or visual hallucinations or any paranoia. She tolerated the Remeron with no side effects, no sedation, and no nausea. She is on Aricept 10 mg at bedtime, Namenda 10 mg twice a day, and Remeron I added yesterday 7.5 mg at bedtime. 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 Thank you very much for allowing me to participate in the care of this most interesting lady. JOB# [id number]
[2017-06-25] MEDS: Sodium Chloride 0.9% 1,000 ML IV SCH (03:14)
--- NOTE | 2017-06-25 09:36 | Infectious Disease Prog Note ---
Infectious Disease Subjective - Review of Systems Service Date: 06/25/17 Subjective: C/o pain in her suprapubic area with burning in urination. Infectious Disease Objective - Results Result Diagrams: 06/24/17 05:10 06/24/17 05:10 Recent Labs: Laboratory Last Values WBC 6.5 Th/cmm (4.8-10.8) 06/24/17 05:10 RBC 3.82 Mil/cmm (3.80-5.20) 06/24/17 05:10 Hgb 10.9 gm/dL (12-16) L 06/24/17 05:10 Hct 32.6 % (41.0-60) L 06/24/17 05:10 MCV 85.5 fl (81-100) 06/24/17 05:10 MCH 28.7 pg (27.0-31.0) 06/24/17 05:10 MCHC Differential 33.5 pg (28.0-36.0) 06/24/17 05:10 RDW 12.8 % (11.5-20.0) 06/24/17 05:10 Plt Count 310 Th/cmm (150-400) 06/24/17 05:10 MPV 6.7 fl 06/24/17 05:10 Neutrophils % 48.0 % (40.0-80.0) 06/24/17 05:10 Lymphocytes % 40.9 % (20.0-50.0) 06/24/17 05:10 Monocytes % 7.8 % (2.0-10.0) 06/24/17 05:10 Eosinophils % 2.5 % (0.0-5.0) 06/24/17 05:10 Basophils % 0.8 % (0.0-2.0) 06/24/17 05:10 PT 11.0 SECONDS (9.5-11.5) 06/22/17 13:40 INR 1.06 (0.5-1.4) 06/22/17 13:40 Sodium 134 mEq/L (136-145) L 06/24/17 05:10 Potassium 3.8 mEq/L (3.5-5.1) 06/24/17 05:10 Chloride 102 mEq/L (98-107) 06/24/17 05:10 Carbon Dioxide 25.0 mEq/L (21.0-31.0) 06/24/17 05:10 Anion Gap 10.8 (7.0-16.0) 06/24/17 05:10 BUN 10 mg/dL (7-25) 06/24/17 05:10 Creatinine 0.5 mg/dL (0.6-1.2) L 06/24/17 05:10 Est GFR ( Amer) TNP 06/24/17 05:10 Est GFR (Non-Af Amer) TNP 06/24/17 05:10 BUN/Creatinine Ratio 20.0 06/24/17 05:10 Glucose 128 mg/dL (70-105) H 06/24/17 05:10 POC Glucose 112 MG/DL (70 - 105) H 06/24/17 21:27 Calcium 9.5 mg/dL (8.6-10.3) 06/24/17 05:10 Total Bilirubin 0.4 mg/dL (0.3-1.0) 06/22/17 13:40 AST 16 U/L (13-39) 06/22/17 13:40 ALT 12 U/L (7-52) 06/22/17 13:40 Alkaline Phosphatase 52 U/L (34-104) 06/22/17 13:40 Creatine Kinase 49 U/L (30-223) 06/22/17 13:40 Troponin I < 0.01 ng/mL (0.01-0.05) L 06/22/17 13:40 B-Natriuretic Peptide 18.5 pg/mL (5.0-100.0) 06/22/17 13:40 Total Protein 7.3 gm/dL (6.0-8.3) 06/22/17 13:40 Albumin 4.6 gm/dL (3.7-5.3) 06/22/17 13:40 Globulin 2.7 gm/dL 06/22/17 13:40 Albumin/Globulin Ratio 1.7 (1.0-1.8) 06/22/17 13:40 Triglycerides 92 mg/dL (<150) 06/23/17 05:36 Cholesterol 119 mg/dL (<200) 06/23/17 05:36 LDL Cholesterol Direct 48 mg/dL (75-193) L 06/23/17 05:36 HDL Cholesterol 49 mg/dL (23-92) 06/23/17 05:36 CA 19-9 Antigen 20 U/mL (0-35) 06/22/17 17:35 CA 125 Antigen 7.4 U/mL (0.0-38.1) 06/22/17 17:35 TSH 1.20 uIU/ml (0.34-5.60) 06/23/17 05:36 Hepatitis A IgM Ab Negative (Negative) 06/22/17 17:44 Hep Bs Antigen Negative (Negative) 06/22/17 17:44 Hep Bs Ag Confirmation Cancelled 06/22/17 17:35 Hep B Core IgM Ab Negative (Negative) 06/22/17 17:44 Hepatitis C Antibody <0.1 s/co ratio (0.0-0.9) 06/22/17 17:44 - Physical Exam Vitals and I&O: Vital Signs Temp 97.1 F 06/25/17 04:00 Pulse 65 06/25/17 04:00 Resp 18 06/25/17 04:00 BP 120/51 06/25/17 04:00 Pulse Ox 96 06/25/17 04:00 Intake & Output 06/24/17 06/25/17 06/25/17 18:59 06:59 18:59 Intake Total 613.333 506.667 Balance 613.333 506.667 Weight (lbs) 82.327 kg Intake: Intake, IV Amount 613.333 386.667 Sodium Chloride 0.9% 1, 613.333 386.667 000 ml @ 50 mls/hr IV . Q20H [facility] Rx#:[id number] Oral 120 Other: # Voids 3 Weight Source Bedscale Active Medications: Current Medications Acetaminophen (Tylenol) 650 mg PO Q4H PRN PRN Reason: Abdominal Pain Stop: 08/21/17 18:44 Last Admin: 06/23/17 16:29 Dose: 650 mg Acetaminophen/Hydrocodone Bitart ([place] 5mg/325mg) 1 tab PO Q6H PRN PRN Reason: Severe Pain Stop: 08/22/17 10:57 Last Admin: 06/24/17 22:22 Dose: 1 tab Amantadine HCl (Symmetrel) 100 mg PO BID [facility] Stop: 08/22/17 08:59 Last Admin: 06/24/17 17:43 Dose: 100 mg Artificial Tears (Artificial Tears Ophth Soln) 1 drop EACH EYE QID [facility] Stop: 08/22/17 08:59 Last Admin: 06/24/17 20:57 Dose: 1 drop Aspirin (Ecotrin) 81 mg PO DAILY [facility] Stop: 08/22/17 08:59 Last Admin: 06/24/17 10:13 Dose: 81 mg Calcium/Vitamin D (Oscal W/Vitamin D) 1 tab PO DAILY [facility] Stop: 08/22/17 08:59 Last Admin: 06/24/17 10:13 Dose: 1 tab Camphor/Menthol (Bengay Greaseless 10%-15%) 1 appl TP DAILY PRN PRN Reason: Pain (Mild) Stop: 08/22/17 09:59 Last Admin: 06/23/17 20:42 Dose: 1 appl Carbidopa/Levodopa (Sinemet Cr 50mg-200mg) 1 ter PO Q12H [facility] Stop: 08/22/17 09:59 Last Admin: 06/24/17 22:26 Dose: Not Given Carvedilol (Coreg) 3.125 mg PO BID [facility] Stop: 08/22/17 08:59 Last Admin: 06/24/17 17:47 Dose: 3.125 mg Clonazepam (Klonopin) 1 mg PO HS [facility] PRN Reason: Protocol Stop: 08/22/17 20:59 Last Admin: 06/24/17 20:56 Dose: 1 mg Donepezil HCl (Aricept) 10 mg PO HS [facility] Stop: 08/22/17 20:59 Last Admin: 06/24/17 20:57 Dose: 10 mg Fenofibrate (Tricor) 134 mg PO DAILY [facility] Stop: 08/22/17 09:59 Last Admin: 06/24/17 10:14 Dose: 134 mg Furosemide (Lasix) 40 mg PO DAILY [facility] Stop: 08/22/17 08:59 Last Admin: 06/24/17 10:14 Dose: 40 mg Hydrocortisone (Anusol-Hc) 25 mg RC BID [facility] Stop: 08/22/17 08:59 Last Admin: 06/24/17 17:44 Dose: 25 mg Sodium Chloride (Nacl 0.9%) 1,000 mls @ 50 mls/hr IV .Q20H [facility] Stop: 08/21/17 22:18 Last Admin: 06/25/17 03:14 Dose: 50 mls/hr Insulin Aspart (Novolog Insulin Sliding Scale) 0 units SUBQ ACHS [facility] PRN Reason: Protocol Stop: 08/23/17 11:29 Last Admin: 06/24/17 21:36 Dose: Not Given Lactulose (Cephulac) 10 gm PO BID [facility] Stop: 08/22/17 08:59 Last Admin: 06/24/17 17:36 Dose: Not Given Losartan Potassium (Cozaar) 50 mg PO DAILY [facility] Stop: 08/22/17 09:59 Last Admin: 06/24/17 10:15 Dose: Not Given Memantine (Namenda) 10 mg PO BID [facility] Stop: 08/22/17 16:59 Last Admin: 06/24/17 17:46 Dose: 10 mg Metformin HCl (Glucophage) 1,000 mg PO BID [facility] Stop: 08/22/17 10:59 Last Admin: 06/24/17 17:46 Dose: 1,000 mg Miconazole Nitrate (Miconazole 2% Cream) 1 appl VG HS [facility] Stop: 06/30/17 21:01 Last Admin: 06/24/17 20:56 Dose: 1 appl Mirtazapine (Remeron) 7.5 mg PO HS [facility] PRN Reason: Protocol Stop: 08/22/17 20:59 Last Admin: 06/24/17 21:08 Dose: 7.5 mg Miscellaneous (Vortloxetine) 15 mg PO DAILY [facility] Stop: 08/22/17 08:59 Mupirocin (Bactroban Oint) 1 appl NS BID [facility] Stop: 06/28/17 17:01 Last Admin: 06/24/17 17:46 Dose: 1 appl Nitrofurantoin Macrocrystals (Macrobid) 100 mg PO BID [facility] PRN Reason: Protocol Stop: 08/22/17 08:59 Last Admin: 06/24/17 17:47 Dose: 100 mg Pregabalin (Lyrica) 150 mg PO Q12H [facility] Stop: 08/22/17 09:59 Last Admin: 06/24/17 22:22 Dose: 150 mg Prochlorperazine (Compazine) 25 mg RC Q12H PRN; Protocol PRN Reason: Nausea/vomiting Stop: 08/21/17 22:07 Simethicone (Mylicon) 80 mg PO Q6H PRN PRN Reason: Indigestion Stop: 08/21/17 22:07 Last Admin: 06/23/17 18:18 Dose: 80 mg Simvastatin (Zocor) 40 mg PO HS [facility] PRN Reason: Protocol Stop: 08/22/17 20:59 Last Admin: 06/24/17 20:57 Dose: 40 mg Spironolactone (Aldactone) 50 mg PO DAILY [facility] Stop: 08/22/17 09:59 Last Admin: 06/24/17 10:16 Dose: Not Given Sucralfate (Carafate) 1 gm PO TID [facility] Stop: 08/22/17 08:59 Last Admin: 06/24/17 21:22 Dose: 1 gm Tramadol HCl (Ultram) 50 mg PO Q6HR PRN PRN Reason: Abdominal Pain Stop: 08/21/17 18:33 Last Admin: 06/24/17 15:38 Dose: 50 mg Trazodone HCl (Desyrel) 50 mg PO [facility] PRN Reason: Protocol Stop: 08/22/17 20:59 Last Admin: 06/24/17 20:57 Dose: 50 mg General: no acute distress, well developed, well nourished HEENT: atraumatic, normocephalic, PERRLA Neck: supple, no thyromegaly Cardiovascular: S1S2, regular Lungs: clear to auscultation bilaterally, clear to percussion Abdomen: soft, no tender, no distended Extremities: no cyanosis, no clubbing, no edema Neurological: awake, alert, oriented Skin: intact Infectious Disease Assmt/Plan - Assessment Assessment: 1. vaginitis. ? non infectious versus arlene. 2. Dysuria. 3. MRSA Colonization. - Plan Plan: Will give monistat and estrogen cream. bladder scan. UA urine cs. cipro
[2017-06-25] MEDS: Hydrocodone/APAP 5mg/325mg Tab PO PRN ×2 (09:46→16:55)
[2017-06-25] MEDS: Fenofibrate, Micronized 134 mg Cap PO SCH (09:46)
[2017-06-25] MEDS: Calcium Carb/Vit D 500 mg/200 U Tab PO SCH (09:47)
[2017-06-25] MEDS: Polyvinyl Alcohol Ophth Soln 15 mL Bottle EACH EYE SCH ×4 (09:48→21:26)
[2017-06-25] MEDS: Lactulose 10 Gm/15 mL 30mL UDC PO SCH ×2 (09:48→16:56)
[2017-06-25] MEDS: INSULIN ASPART SLIDING SCALE 100 UNITS/ML UNIT SUBQ SCH ×4 (09:50→21:42)
[2017-06-25] MEDS ORDERED: Morphine Sulfate 4 mg/mL 1mL Syr IV PRN (10:58)
[2017-06-25] MEDS: Carbidopa/Levodopa 50/200 mg 1 TER TER PO SCH (12:23)
[2017-06-25 14:56] LABS: URINE MICROSCOPIC INDICATED? YES; URINE SOURCE CLEAN C
[2017-06-25 14:58] LABS: URINE BILIRUBIN NEGATIVE (NEGATIVE); URINE BLOOD NEGATIVE (NEGATIVE); URINE GLUCOSE (UA) NEGATIVE (NEGATIVE); URINE KETONE NEGATIVE (NEGATIVE); URINE NITRATE NEGATIVE (NEGATIVE); URINE PROTEIN NEGATIVE (NEGATIVE); URINE UROBILINOGEN 0.2 E.U./dL (0.2 - 1.0)
[2017-06-25 15:06] LABS: URINE CLARITY HAZY (CLEAR); URINE COLOR YELLOW; URINE LEUKOCYTE ESTERASE SMALL (NEGATIVE)
[2017-06-25 15:07] LABS: URINE EPITHELIAL CELLS FEW /lpf (FEW); URINE RBC 0-2 /hpf (0-5); URINE WBC 0-2 /hpf (0-5)
[2017-06-25 15:08] LABS: URINE BACTERIA MANY /hpf (NONE SEEN)
--- NOTE | 2017-06-25 17:17 | Progress Notes ---
DATE: 06/25/2017 SUBJECTIVE: The patient was seen in her room complaining of lower abdominal pain. Family members at bedside. The patient stated that she was given a [place], but the pain has not subsided, otherwise the patient appears to be in no acute distress. OBJECTIVE: VITAL SIGNS: Temperature 97.1, heart rate of 65, respirations of 18, 96% on room air, blood pressure 117/59. HEENT: Head is atraumatic and normocephalic. Eyes: Bilateral conjunctivae are clear. Bilateral pupils are equally round and reactive. NECK: Supple. No JVD. CARDIOVASCULAR: S1 and S2, without murmur. PULMONARY: Clear to auscultation. GASTROINTESTINAL: Soft and nontender without guarding. Positive bowel sounds. MUSCULOSKELETAL: No clubbing. No cyanosis noted. ASSESSMENT: 1. Vaginitis. 2. Dysuria. 3. Hypertension. 4. Osteoarthritis. 5. Dementia. 6. Asthma. PLAN: We will change the medication for pain management as needed. We will follow up with ID doctor for possible antibiotic management. Treatment plans were discussed with the patient's nurse. Treatments were also discussed with Dr. Adames. JOB# [id number]
[2017-06-26 06:31] LABS: ANION GAP 11.2 (7.0-16.0); BUN - UREA NITROGEN 13 mg/dL (7-25); CALCIUM SERUM 9.3 mg/dL (8.6-10.3); CARBON DIOXIDE 26.2 mEq/L (21.0-31.0); CHLORIDE 101 mEq/L (98-107); CREATININE - SERUM 0.5 mg/dL (0.6-1.2); GLUCOSE 111 mg/dL (70-105); POTASSIUM SERUM 3.4 mEq/L (3.5-5.1); SODIUM SERUM 135 mEq/L (136-145)
[2017-06-26] MEDS: INSULIN ASPART SLIDING SCALE 100 UNITS/ML UNIT SUBQ SCH ×3 (06:38→17:58)
[2017-06-26] MEDS: Lactulose 10 Gm/15 mL 30mL UDC PO SCH ×2 (09:00→17:09)
[2017-06-26] MEDS: Fenofibrate, Micronized 134 mg Cap PO SCH (09:01)
[2017-06-26] MEDS: Calcium Carb/Vit D 500 mg/200 U Tab PO SCH (09:02)
[2017-06-26] MEDS: Polyvinyl Alcohol Ophth Soln 15 mL Bottle EACH EYE SCH ×3 (09:07→17:12)
--- NOTE | 2017-06-26 09:58 | Diagnostic Imaging Report ---
Ultrasound examination due to bladder HISTORY: Pelvic pain. Findings: Real-time ultrasound examination of urinary bladder was performed multiple planes. The study demonstrates distended bladder with thickening of the wall measuring the 4 mm. The patient is incontinent. IMPRESSION: Unremarkable examination of gallbladder.
--- NOTE | 2017-06-26 11:32 | General Progress Note ---
Subjective - Review of Systems Events since last encounter: patient awake alert in no acute distress Objective - Results Result Diagrams: 06/24/17 05:10 06/26/17 05:22 Recent Labs: Laboratory Last Values WBC 6.5 Th/cmm (4.8-10.8) 06/24/17 05:10 RBC 3.82 Mil/cmm (3.80-5.20) 06/24/17 05:10 Hgb 10.9 gm/dL (12-16) L 06/24/17 05:10 Hct 32.6 % (41.0-60) L 06/24/17 05:10 MCV 85.5 fl (81-100) 06/24/17 05:10 MCH 28.7 pg (27.0-31.0) 06/24/17 05:10 MCHC Differential 33.5 pg (28.0-36.0) 06/24/17 05:10 RDW 12.8 % (11.5-20.0) 06/24/17 05:10 Plt Count 310 Th/cmm (150-400) 06/24/17 05:10 MPV 6.7 fl 06/24/17 05:10 Neutrophils % 48.0 % (40.0-80.0) 06/24/17 05:10 Lymphocytes % 40.9 % (20.0-50.0) 06/24/17 05:10 Monocytes % 7.8 % (2.0-10.0) 06/24/17 05:10 Eosinophils % 2.5 % (0.0-5.0) 06/24/17 05:10 Basophils % 0.8 % (0.0-2.0) 06/24/17 05:10 PT 11.0 SECONDS (9.5-11.5) 06/22/17 13:40 INR 1.06 (0.5-1.4) 06/22/17 13:40 Sodium 135 mEq/L (136-145) L 06/26/17 05:22 Potassium 3.4 mEq/L (3.5-5.1) L 06/26/17 05:22 Chloride 101 mEq/L (98-107) 06/26/17 05:22 Carbon Dioxide 26.2 mEq/L (21.0-31.0) 06/26/17 05:22 Anion Gap 11.2 (7.0-16.0) 06/26/17 05:22 BUN 13 mg/dL (7-25) 06/26/17 05:22 Creatinine 0.5 mg/dL (0.6-1.2) L 06/26/17 05:22 Est GFR ( Amer) TNP 06/26/17 05:22 Est GFR (Non-Af Amer) TNP 06/26/17 05:22 BUN/Creatinine Ratio 26.0 06/26/17 05:22 Glucose 111 mg/dL (70-105) H 06/26/17 05:22 POC Glucose 121 MG/DL (70 - 105) H 06/26/17 06:35 Calcium 9.3 mg/dL (8.6-10.3) 06/26/17 05:22 Total Bilirubin 0.4 mg/dL (0.3-1.0) 06/22/17 13:40 AST 16 U/L (13-39) 06/22/17 13:40 ALT 12 U/L (7-52) 06/22/17 13:40 Alkaline Phosphatase 52 U/L (34-104) 06/22/17 13:40 Creatine Kinase 49 U/L (30-223) 06/22/17 13:40 Troponin I < 0.01 ng/mL (0.01-0.05) L 06/22/17 13:40 B-Natriuretic Peptide 18.5 pg/mL (5.0-100.0) 06/22/17 13:40 Total Protein 7.3 gm/dL (6.0-8.3) 06/22/17 13:40 Albumin 4.6 gm/dL (3.7-5.3) 06/22/17 13:40 Globulin 2.7 gm/dL 06/22/17 13:40 Albumin/Globulin Ratio 1.7 (1.0-1.8) 06/22/17 13:40 Triglycerides 92 mg/dL (<150) 06/23/17 05:36 Cholesterol 119 mg/dL (<200) 06/23/17 05:36 LDL Cholesterol Direct 48 mg/dL (75-193) L 06/23/17 05:36 HDL Cholesterol 49 mg/dL (23-92) 06/23/17 05:36 CA 19-9 Antigen 20 U/mL (0-35) 06/22/17 17:35 CA 125 Antigen 7.4 U/mL (0.0-38.1) 06/22/17 17:35 TSH 1.20 uIU/ml (0.34-5.60) 06/23/17 05:36 Urine Source CLEAN C 06/25/17 14:44 Urine Color YELLOW 06/25/17 14:44 Urine Clarity HAZY (CLEAR) 06/25/17 14:44 Urine pH 6.0 (4.6 - 8.0) 06/25/17 14:44 Ur Specific [place] 1.010 (1.005-1.030) 06/25/17 14:44 Urine Protein NEGATIVE mg/dL (NEGATIVE) 06/25/17 14:44 Urine Glucose (UA) NEGATIVE mg/dL (NEGATIVE) 06/25/17 14:44 Urine Ketones NEGATIVE mg/dL (NEGATIVE) 06/25/17 14:44 Urine Blood NEGATIVE (NEGATIVE) 06/25/17 14:44 Urine Nitrate NEGATIVE (NEGATIVE) 06/25/17 14:44 Urine Bilirubin NEGATIVE (NEGATIVE) 06/25/17 14:44 Urine Urobilinogen 0.2 E.U./dL (0.2 - 1.0) 06/25/17 14:44 Ur Leukocyte Esterase SMALL (NEGATIVE) H 06/25/17 14:44 Urine RBC 0-2 /hpf (0-5) 06/25/17 14:44 Urine WBC 0-2 /hpf (0-5) 06/25/17 14:44 Ur Epithelial Cells FEW /lpf (FEW) 06/25/17 14:44 Urine Bacteria MANY /hpf (NONE SEEN) H 06/25/17 14:44 Hepatitis A IgM Ab Negative (Negative) 06/22/17 17:44 Hep Bs Antigen Negative (Negative) 06/22/17 17:44 Hep Bs Ag Confirmation Cancelled 06/22/17 17:35 Hep B Core IgM Ab Negative (Negative) 06/22/17 17:44 Hepatitis C Antibody <0.1 s/co ratio (0.0-0.9) 06/22/17 17:44 - Physical Exam Vitals and I&O: Vital Signs Temp 97.5 F 06/26/17 07:51 Pulse 70 06/26/17 09:03 Resp 17 06/26/17 07:51 BP 127/64 06/26/17 09:03 Pulse Ox 96 06/26/17 07:51 Intake & Output 06/25/17 06/26/17 06/26/17 18:59 06:59 18:59 Intake Total 800 500 Balance 800 500 Weight (lbs) 82.327 kg 82.554 kg Intake: Oral 800 500 Other: # Voids 5 4 # Bowel Movements 1 1 Stool Characteristics Soft Green Weight Source Bedscale Bedscale Active Medications: Current Medications Acetaminophen (Tylenol) 650 mg PO Q4H PRN PRN Reason: Abdominal Pain Stop: 08/21/17 18:44 Last Admin: 06/26/17 09:01 Dose: 650 mg Acetaminophen/Hydrocodone Bitart ([place] 5mg/325mg) 1 tab PO Q6H PRN PRN Reason: Severe Pain Stop: 08/22/17 10:57 Last Admin: 06/25/17 16:55 Dose: 1 tab Amantadine HCl (Symmetrel) 100 mg PO BID [facility] Stop: 08/22/17 08:59 Last Admin: 06/26/17 09:03 Dose: 100 mg Artificial Tears (Artificial Tears Ophth Soln) 1 drop EACH EYE QID [facility] Stop: 08/22/17 08:59 Last Admin: 06/26/17 09:07 Dose: 1 drop Aspirin (Ecotrin) 81 mg PO DAILY [facility] Stop: 08/22/17 08:59 Last Admin: 06/26/17 09:02 Dose: 81 mg Calcium/Vitamin D (Oscal W/Vitamin D) 1 tab PO DAILY [facility] Stop: 08/22/17 08:59 Last Admin: 06/26/17 09:02 Dose: 1 tab Camphor/Menthol ([place] Greaseless 10%-15%) 1 appl TP DAILY PRN PRN Reason: Pain (Mild) Stop: 08/22/17 09:59 Last Admin: 06/23/17 20:42 Dose: 1 appl Carbidopa/Levodopa (Sinemet Cr 50mg-200mg) 1 ter PO Q12H [facility] Stop: 08/22/17 09:59 Last Admin: 06/25/17 12:23 Dose: Not Given Carvedilol (Coreg) 3.125 mg PO BID [facility] Stop: 08/22/17 08:59 Last Admin: 06/26/17 09:01 Dose: 3.125 mg Ciprofloxacin (Cipro) 250 mg PO Q12H [facility] Stop: 08/24/17 10:59 Last Admin: 06/25/17 23:42 Dose: 250 mg Clonazepam (Klonopin) 1 mg PO HS [facility] PRN Reason: Protocol Stop: 08/22/17 20:59 Last Admin: 06/25/17 21:31 Dose: 1 mg Donepezil HCl (Aricept) 10 mg PO HS [facility] Stop: 08/22/17 20:59 Last Admin: 06/25/17 21:32 Dose: 10 mg Fenofibrate (Tricor) 134 mg PO DAILY [facility] Stop: 08/22/17 09:59 Last Admin: 06/26/17 09:01 Dose: 134 mg Furosemide (Lasix) 40 mg PO DAILY [facility] Stop: 08/22/17 08:59 Last Admin: 06/26/17 09:02 Dose: 40 mg Hydrocortisone (Anusol-Hc) 25 mg RC BID [facility] Stop: 08/22/17 08:59 Last Admin: 06/26/17 09:07 Dose: 25 mg Sodium Chloride (Nacl 0.9%) 1,000 mls @ 50 mls/hr IV .Q20H [facility] Stop: 08/21/17 22:18 Last Admin: 06/25/17 03:14 Dose: 50 mls/hr Insulin Aspart (Novolog Insulin Sliding Scale) 0 units SUBQ ACHS [facility] PRN Reason: Protocol Stop: 08/23/17 11:29 Last Admin: 06/26/17 06:38 Dose: Not Given Lactulose (Cephulac) 10 gm PO BID [facility] Stop: 08/22/17 08:59 Last Admin: 06/26/17 09:00 Dose: 10 gm Losartan Potassium (Cozaar) 50 mg PO DAILY [facility] Stop: 08/22/17 09:59 Last Admin: 06/26/17 09:02 Dose: 50 mg Memantine (Namenda) 10 mg PO BID [facility] Stop: 08/22/17 16:59 Last Admin: 06/26/17 09:03 Dose: 10 mg Metformin HCl (Glucophage) 1,000 mg PO BID [facility] Stop: 08/22/17 10:59 Last Admin: 06/26/17 09:03 Dose: 1,000 mg Miconazole Nitrate (Miconazole 2% Cream) 1 appl VG HS [facility] Stop: 06/30/17 21:01 Last Admin: 06/25/17 21:20 Dose: 1 appl Mirtazapine (Remeron) 7.5 mg PO HS [facility] PRN Reason: Protocol Stop: 08/22/17 20:59 Last Admin: 06/25/17 21:31 Dose: 7.5 mg Miscellaneous (Vortloxetine) 15 mg PO DAILY [facility] Stop: 08/22/17 08:59 Morphine Sulfate (Morphine) 1 mg IV Q6H PRN PRN Reason: Pain (Severe) Stop: 08/24/17 10:57 Mupirocin (Bactroban Oint) 1 appl NS BID [facility] Stop: 06/28/17 17:01 Last Admin: 06/26/17 09:06 Dose: 1 appl Nitrofurantoin Macrocrystals (Macrobid) 100 mg PO BID [facility] PRN Reason: Protocol Stop: 08/22/17 08:59 Last Admin: 06/26/17 09:02 Dose: 100 mg Pregabalin (Lyrica) 150 mg PO Q12H [facility] Stop: 08/22/17 09:59 Last Admin: 06/25/17 23:42 Dose: 150 mg Prochlorperazine (Compazine) 25 mg RC Q12H PRN; Protocol PRN Reason: Nausea/vomiting Stop: 08/21/17 22:07 Simethicone (Mylicon) 80 mg PO Q6H PRN PRN Reason: Indigestion Stop: 08/21/17 22:07 Last Admin: 06/23/17 18:18 Dose: 80 mg Simvastatin (Zocor) 40 mg PO [facility] PRN Reason: Protocol Stop: 08/22/17 20:59 Last Admin: 06/25/17 21:32 Dose: 40 mg Spironolactone (Aldactone) 50 mg PO DAILY [facility] Stop: 08/22/17 09:59 Last Admin: 06/26/17 09:03 Dose: 50 mg Sucralfate (Carafate) 1 gm PO TID [facility] Stop: 08/22/17 08:59 Last Admin: 06/26/17 09:02 Dose: 1 gm Tramadol HCl (Ultram) 50 mg PO Q6HR PRN PRN Reason: Abdominal Pain Stop: 08/21/17 18:33 Last Admin: 06/24/17 15:38 Dose: 50 mg Trazodone HCl (Desyrel) 50 mg PO HS [facility] PRN Reason: Protocol Stop: 08/22/17 20:59 Last Admin: 06/25/17 21:32 Dose: 50 mg Assessment/Plan - Assessment Assessment: syncope vaginitis HTN Asthma/COPD Arthritis Dementia - Plan Plan: id/cardiology consultation carotid u/s am labs continue current orders
[2017-06-26] MEDS: Carbidopa/Levodopa 50/200 mg 1 TER TER PO SCH (12:00)
[2017-06-26] MEDS: Hydrocodone/APAP 5mg/325mg Tab PO PRN (15:30)
== END 2017-06-26 20:15 | DRG 757 ==
LOC: ER 13:08 → TELE 16:01
PROVIDERS: ADMIT Internal Medicine; ATTEND Internal Medicine
DX: N76.0 Acute vaginitis (principal); G93.40 Encephalopathy, unspecified; E87.1 Hypo-osmolality and hyponatremia; F33.2 Major depressive disorder, recurrent severe without psychotic features; I10 Essential (primary) hypertension; G20 Parkinson's disease; F02.80 Dementia in other diseases classified elsewhere, unspecified severity, without behavioral disturbance, psychotic disturbance, mood disturbance, and anxiety; Z66 Do not resuscitate; I25.10 Atherosclerotic heart disease of native coronary artery without angina pectoris; J44.9 Chronic obstructive pulmonary disease, unspecified; E78.5 Hyperlipidemia, unspecified; G31.9 Degenerative disease of nervous system, unspecified; E11.9 Type 2 diabetes mellitus without complications; M19.90 Unspecified osteoarthritis, unspecified site; R30.0 Dysuria; F41.9 Anxiety disorder, unspecified; M79.7 Fibromyalgia; I49.9 Cardiac arrhythmia, unspecified; Z23 Encounter for immunization; Z82.49 Family history of ischemic heart disease and other diseases of the circulatory system; Z79.82 Long term (current) use of aspirin; Z80.0 Family history of malignant neoplasm of digestive organs; Z83.3 Family history of diabetes mellitus; Z22.322 Carrier or suspected carrier of Methicillin resistant Staphylococcus aureus
CPT/HCPCS: 36415-UA; 70450-TC; 71045-TC; 76700-TC; 76857-TC; 80048-TC; 80053-TC; 80061-TC; 80074-90; 81001-TC; 82550-TC; 82948-90; 83880-TC; 84443-TC; 84484-TC; 85025-TC; 85610-TC; 86301-90; 86304-90; 87086-90; 93005; 93307-TC; 93880-TC; 94760; J1815; J7030; Z7610